=== PATIENT | female | born 1990 | race Hispanic/Latino ===

== ENCOUNTER 2021-01-19 18:04 | Inpatient (IN) | payer SELFPAY ==
[~2021-01-19] VITALS: Ht 149.9 cm; Wt 71.1 kg
[2021-01-19 19:54] VITALS: BP 119/69
[2021-01-19] MEDS ORDERED: ONDANSETRON 4 MG TABLET PO ONE (20:30)
[2021-01-19] MEDS ORDERED: KETOROLAC 60 MG VIAL (30MG/ML) IM ONE (20:30)
[2021-01-19] MEDS ORDERED: DICYCLOMINE HCL 10 MG/ML 2ML AMP IM ONE (20:30)
[2021-01-19 21:23] LABS: APPEARANCE,URINE Clear (CLEAR); BILIRUBIN,URINE Negative (NEGATIVE); COLOR,URINE Yellow (YELLOW); GLUCOSE, URINE (UA) Negative (NEGATIVE); KETONES,URINE Negative (NEGATIVE); LEUKOCYTE ESTERASE ,URINE Negative (NEGATIVE); NITRATE,URINE Negative (NEGATIVE); OCCULT BLOOD,URINE Negative (NEGATIVE); PH,URINE 8.5 (5.0-8.0); PROTEIN,URINE Negative (NEGATIVE); UROBILINOGEN,URINE 0.2 mg/dL (0.2-1.0)
[2021-01-19 21:26] LABS: HCG,QUAL RESULT NEGATIVE (NEGATIVE)
[2021-01-19 22:02] LABS: BASOPHILS % (AUTO) 0.3 % (0.0-5.0); EOSINOPHILS % (AUTO) 0.5 % (0.0-8.0); HEMATOCRIT 39.4 % (36-48); LYMPHOCYTES % (AUTO) 14.1 % (21.0-51.0); MEAN CORPUSCULAR HEMOGLOBIN 27.9 pg (27.0-33.0); MEAN CORPUSCULAR VOLUME 87.4 fL (79-99); MONOCYTES % (AUTO) 4.6 % (3.0-13.0); NEUTROPHILS % (AUTO) 80.2 % (40.0-77.0); PLATELET COUNT (AUTO) 172 K/uL (130-400); RED BLOOD CELL COUNT(AUTO) 4.51 MIL/uL (4.00-5.50); RED CELL DISTRIBUTION WIDTH 12.9 % (11.0-15.5); WHITE BLOOD COUNT (AUTO) 7.6 K/uL (4.8-10.8)
[2021-01-19 22:17] LABS: CREATININE 0.6 mg/dL (0.5-1.5); POTASSIUM 3.9 mmol/L (3.5-5.1)
[2021-01-19 22:27] LABS: BILIRUBIN,TOTAL 0.6 mg/dL (0.2-1.0); TOTAL PROTEIN, SERUM 7.8 g/dL (6.0-8.3)
[2021-01-19 22:46] VITALS: BP 126/79
[2021-01-20 00:37] VITALS: BP 129/85
[2021-01-20] MEDS: SODIUM CHLORIDE 0.9% 1000ML 1,000 ML IV SCH ×4 (00:46→15:35)
[2021-01-20] MEDS ORDERED: ONDANSETRON HCL 4 MG/2 ML VIAL IV PRN (02:15)
[2021-01-20] MEDS ORDERED: ACETAMINOPHEN 325 MG TAB PO PRN ×2 (02:15)
[2021-01-20 03:00] VITALS: BP 111/57
[2021-01-20 05:00] VITALS: BP 106/71
[2021-01-20 08:26] LABS: MEAN CORPUSCULAR HEMOGLOBIN 27.4 pg (27.0-33.0); MEAN CORPUSCULAR HGB CONC 31.9 g/dL (32.0-36.0); MEAN CORPUSCULAR VOLUME 85.9 fL (79-99); RED BLOOD CELL COUNT(AUTO) 4.19 MIL/uL (4.00-5.50); WHITE BLOOD COUNT (AUTO) 3.3 K/uL (4.8-10.8)
[2021-01-20 08:59] LABS: ALBUMIN 3.3 g/dL (3.5-5.0); BILIRUBIN,TOTAL 1.2 mg/dL (0.2-1.0); CREATININE 0.4 mg/dL (0.5-1.5); POTASSIUM 3.9 mmol/L (3.5-5.1); TOTAL PROTEIN, SERUM 6.5 g/dL (6.0-8.3)
[2021-01-20] MEDS ORDERED: ZOSYN 3.375GM+NS 50ML 50 ML IV SCH (09:45)
[2021-01-20] MEDS: FAMOTIDINE/PF 20 MG/2 ML VIAL IV SCH ×2 (09:59→22:10)
[2021-01-20] MEDS: ZOSYN 3.375GM+NS 50ML 50 ML IV SCH ×2 (13:09→22:19)
[2021-01-20 15:03] LABS: AMPHET/METH SCREEN,URINE NEGATIVE (NEGATIVE); BARBITURATE SCREEN, URINE NEGATIVE (NEGATIVE); BENZODIAZEPINES SCREEN,URINE NEGATIVE (NEGATIVE); CANNABINOID SCREEN,URINE NEGATIVE (NEGATIVE); COCAINE SCREEN,URINE NEGATIVE (NEGATIVE); OPIATE SCREEN,URINE NEGATIVE (NEGATIVE); PHENCYCLIDINE SCREEN,URINE NEGATIVE (NEGATIVE)
[2021-01-20 18:02] VITALS: BP 128/84
[2021-01-20 19:52] LABS: ALBUMIN 3.4 g/dL (3.5-5.0); BILIRUBIN,TOTAL 1.1 mg/dL (0.2-1.0); CREATININE 0.6 mg/dL (0.5-1.5); POTASSIUM 3.7 mmol/L (3.5-5.1); TOTAL PROTEIN, SERUM 6.8 g/dL (6.0-8.3)
[2021-01-20 20:00] VITALS: BP 124/74
[2021-01-20 22:00] VITALS: BP 111/69
[2021-01-21] VITALS (8 sets, daily range): BP systolic 104–154; BP diastolic 59–90
[2021-01-21] MEDS: ZOSYN 3.375GM+NS 50ML 50 ML IV SCH (06:37)
[2021-01-21] MEDS: SODIUM CHLORIDE 0.9% 1000ML 1,000 ML IV SCH (06:37)
[2021-01-21 07:00] LABS: BASOPHILS % (AUTO) 0.8 % (0.0-5.0); EOSINOPHILS % (AUTO) 3.9 % (0.0-8.0); HEMATOCRIT 35.5 % (36-48); LYMPHOCYTES % (AUTO) 28.8 % (21.0-51.0); MEAN CORPUSCULAR HEMOGLOBIN 27.4 pg (27.0-33.0); MEAN CORPUSCULAR HGB CONC 31.5 g/dL (32.0-36.0); MEAN CORPUSCULAR VOLUME 86.8 fL (79-99); MONOCYTES % (AUTO) 6.7 % (3.0-13.0); NEUTROPHILS % (AUTO) 59.3 % (40.0-77.0); PLATELET COUNT (AUTO) 139 K/uL (130-400); RED BLOOD CELL COUNT(AUTO) 4.09 MIL/uL (4.00-5.50); WHITE BLOOD COUNT (AUTO) 3.9 K/uL (4.8-10.8)
[2021-01-21 07:04] LABS: INR 1.05 (0.85-1.15); PROTHROMBIN TIME 11.4 SEC (9.6-11.6)
[2021-01-21 07:12] LABS: ALBUMIN 3.1 g/dL (3.5-5.0); BILIRUBIN,TOTAL 0.4 mg/dL (0.2-1.0); CREATININE 0.5 mg/dL (0.5-1.5); POTASSIUM 3.7 mmol/L (3.5-5.1); TOTAL PROTEIN, SERUM 6.2 g/dL (6.0-8.3)
[2021-01-21] MEDS: FAMOTIDINE/PF 20 MG/2 ML VIAL IV SCH ×2 (09:00→21:28)
[2021-01-22] VITALS: BP 145/82
[2021-01-22 04:00] VITALS: BP 104/73
[2021-01-22 07:49] VITALS: BP 109/68
[2021-01-22 07:52] LABS: BASOPHILS % (AUTO) 0.5 % (0.0-5.0); EOSINOPHILS % (AUTO) 2.6 % (0.0-8.0); HEMATOCRIT 37.6 % (36-48); LYMPHOCYTES % (AUTO) 26.5 % (21.0-51.0); MEAN CORPUSCULAR HEMOGLOBIN 27.8 pg (27.0-33.0); MEAN CORPUSCULAR HGB CONC 31.9 g/dL (32.0-36.0); MONOCYTES % (AUTO) 7.4 % (3.0-13.0); NEUTROPHILS % (AUTO) 62.6 % (40.0-77.0); PLATELET COUNT (AUTO) 157 K/uL (130-400); RED BLOOD CELL COUNT(AUTO) 4.32 MIL/uL (4.00-5.50); WHITE BLOOD COUNT (AUTO) 5.7 K/uL (4.8-10.8)
[2021-01-22 08:29] LABS: ALBUMIN 3.6 g/dL (3.5-5.0); BILIRUBIN,TOTAL 0.4 mg/dL (0.2-1.0); CREATININE 0.6 mg/dL (0.5-1.5); POTASSIUM 3.8 mmol/L (3.5-5.1); TOTAL PROTEIN, SERUM 7.1 g/dL (6.0-8.3)
[2021-01-22] MEDS: FAMOTIDINE/PF 20 MG/2 ML VIAL IV SCH (09:52)
[2021-01-22 11:03] VITALS: BP 112/69
== END 2021-01-22 12:00 | disposition home or self-care (01) | DRG 446 ==
LOC: EDH 18:04 → OBSVTOIN 18:05 → EDHIP 18:05 → 3CH 01-21 09:18
PROVIDERS: ADMIT Internal Medicine; ATTEND Internal Medicine
DX: K80.20 Calculus of gallbladder without cholecystitis without obstruction (principal); R74.8 Abnormal levels of other serum enzymes
CPT/HCPCS: 36415; 74181; 76705; 78226; 80053; 80061; 80074; 80305; 81003; 81025; 83690; 85025; 85027; 85610; A9537; G0378; J0500; J1885; J2543; J3490; J7030; Q0162

== ENCOUNTER 2025-08-02 18:37 | Emergency (ER) | payer SELFPAY ==
[~2025-08-02] VITALS: Ht 152.4 cm; Wt 70.3 kg
[2025-08-02 20:00] LABS: IMMATURE GRANULOCYTE ABSOLUTE 0.07 K/uL (0-1); NUCLEATED RED BLOOD CELLS 0.0 % (0.0-0.19); PLATELET COUNT (AUTO) 195 K/uL (130-400); RED BLOOD CELL COUNT(AUTO) 4.62 MIL/uL (4.00-5.50); RED CELL DISTRIBUTION WIDTH 12.8 % (11.0-15.5); WHITE BLOOD COUNT (AUTO) 15.4 K/uL (4.8-10.8)
[2025-08-02 20:10] LABS: CREATININE 0.5 mg/dL (0.5-1.0); GLOMERULAR FILTR. RATE CALC 125.0 mL/min (>90); GLUCOSE,RANDOM 106.0 mg/dL (70-105); SODIUM SERUM 139.0 mmol/L (136-145); UREA NITROGEN, BLOOD 12.0 mg/dL (7-18)
[2025-08-02 20:14] LABS: ASPARTATE AMINOTRANSFERASE 19.0 U/L (10-37); TOTAL PROTEIN, SERUM 7.5 g/dL (6.0-8.3)
--- NOTE | 2025-08-02 22:43 | HMCIMG ---
EXAMINATION: ULTRASOUND OF THE ABDOMEN (LIMITED) WITH COLOR DOPPLER. CLINICAL HISTORY: To rule out acute cholecystitis. COMPARISON: None. TECHNIQUE: Real-time grayscale ultrasound images of the abdomen. In addition, color Doppler is medically necessary to perform in order to evaluate vascularity and blood flow. FINDINGS: Liver: Normal in caliber, the right hepatic lobe measures 12.8 cm in the craniocaudal dimension. There is normal echogenicity of the hepatic parenchyma. There is no focal hepatic abnormality or intrahepatic biliary ductal dilatation. There is normal spectral Doppler of the main portal vein. Gallbladder: Within normal limits with normal wall thickness (0.2 cm). No hyperemia or pericholecystic free fluid. There a calculus that measures 2.1 cm. There is sludge. Common bile duct is normal in caliber, measuring 0.37 cm. Pancreas: Obscured by overlying bowel gas. The right kidney is normal in caliber, the right kidney measures 8.8 x 4.4 x 4.2 cm in its craniocaudal, AP, and transverse dimensions respectively. There is normal renal cortical thickness, and cortical echogenicity. There is no renal calculus or hydronephrosis. IMPRESSION: Cholelithiasis. No cholecystitis. /[place]
[2025-08-02] MEDS ORDERED: FAMO-136 PO (22:56)
[2025-08-02] MEDS ORDERED: KETO10TA2 PO (22:56)
[2025-08-02] MEDS ORDERED: ONDA-243 PO (22:56)
--- NOTE | 2025-08-02 23:00 | ERN ---
General Chief Complaint: Abdominal Pain Stated Complaint: ABDOMINAL PAIN Time Seen by MD: 18:40 Time Seen by Midlevel: 18:40 Source: patient History of Present Illness Initial Comments The patient is a 35-year-old female with a past medical history of gallstones presenting to the emergency department for evaluation of right upper quadrant abdominal pain. The pain started at noon today. No other symptoms reported at this time Allergies: Coded Allergies: No Known Drug Allergies (Unverified Allergy, Unknown, 01/19/21) Home Meds Active Scripts Famotidine (Pepcid) 20 Mg Tablet, 1 TAB PO BID for 10 Days, #20 TAB 0 Refills Prov:EDGAR JOE [facility] 08/02/25 Ketorolac Tromethamine (Ketorolac Tromethamine) 10 Mg Tablet, 1 TAB PO TID for pain for 5 Days, #15 TAB 0 Refills Prov:EDGAR JOE [facility] 08/02/25 Ondansetron (Ondansetron Odt) 4 Mg Tab.rapdis, 4 MG PO BID for 7 Days, #14 TAB Prov:EDGAR JOE [facility] 08/02/25 Past Medical History Past Medical History: Gallstones Past Surgical History: None Female( History) LMP: Jul 20, 2025 : 2 Para: 2 ROS Dictation CONSTITUTIONAL: Negative except for HPI HEAD/FACE: Negative except for HPI EENT: Negative except for HPI RESPIRATORY: Negative except for HPI GASTROINTESTINAL/ABDOMINAL: Negative except for HPI GENITOURINARY: Negative except for HPI MUSCULOSKELETAL: Negative except for HPI INTEGUMENTARY: Negative except for HPI NEUROLOGICAL/PSYCH: Negative except for HPI HEMATOLOGIC/LYMPHATIC: Negative except for HPI All Systems Negative, Except as noted above. 13 point review of systems assessed and all negative except for above. Physical Exam Physical Exam Dictation Vital Signs reviewed General Appearance: Alert, oriented x 3, no acute distress, well developed, nourished. Head and Face: non-traumatic. Eyes: PERRL, pink conjunctivas, eyelid no trauma, anterior chamber with arcus senilis. Ears: Pinnas intact and no signs of trauma or erythema ear canals clear and no discharge TM no erythema Nose: No discharge, no bleeding. Oropharynx: Mouth normal, tongue pink, pharynx clear,no erythema, tonsils no exudates, no abscesses noted, mucous membrane moist Neck: Supple, non-tender, no thyromegaly, no masses, no JVD, no bruits Breast:Deferred Chest:No tenderness, no crepitus, no paradoxical movement, no retractions Lungs:Clear, well-ventilated, symmetric, no rales, no wheezing, no rhonchi, no stridor, good breath sounds bilaterally Heart: Regular rate, regular rhythm, no murmur, no gallops Vascular: no peripheral edema, Abdomen: Soft, positive bowel sounds, nondistended, no guarding, Right upper quadrant abdominal tenderness, no rebound, no masses no hepatomegaly, no splenomegaly, no Rodriguez's sign, no hernias. Rectal: Deferred Genital: Deferred Neurological: Normal speech, motor function intact, sensory function intact Musculoskeletal: Neck nontender, full range of motion, back nontender, full range of motion, Extremities: nontender, full range of motion Skin: Color pink, dry, no turgor, no rash, no lacerations, no abrasions, no contusions. Lymphatic: Deferred Results Laboratory and Microbiology Lab and Micro Result Laboratory Tests Test 08/02/25 19:53 White Blood Count 15.4 K/uL (4.8-10.8) H Red Blood Count 4.62 MIL/uL (4.00-5.50) Hemoglobin 13.3 g/dL (12.0-16.0) Hematocrit 40.3 % (36-48) Mean Corpuscular Volume 87.2 fL (79-99) Mean Corpuscular Hemoglobin 28.8 pg (27.0-33.0) Mean Corpuscular Hemoglobin Concent 33.0 g/dL (32.0-36.0) Red Cell Distribution Width 12.8 % (11.0-15.5) Platelet Count 195 K/uL (130-400) Mean Platelet Volume 12.7 fL (7.5-10.5) H Immature Granulocyte % (Auto) 0.5 % (0-1) Neutrophils (%) (Auto) 91.8 % (40.0-77.0) H Lymphocytes (%) (Auto) 5.0 % (21.0-51.0) L Monocytes (%) (Auto) 2.5 % (3.0-13.0) L Eosinophils (%) (Auto) 0.1 % (0.0-8.0) Basophils (%) (Auto) 0.1 % (0.0-5.0) Neutrophils # (Auto) 14.2 K/uL (1.8-7.7) H Lymphocytes # (Auto) 0.8 K/uL (1.0-4.8) L Monocytes # (Auto) 0.4 K/uL (0.1-1.0) Eosinophils # (Auto) 0.01 K/uL (0.00-0.70) Basophils # (Auto) 0.02 K/uL (0.00-0.20) Absolute Immature Granulocyte (auto 0.07 K/uL (0-1) Nucleated Red Blood Cells 0.0 % (0.0-0.19) White Cell Morphology Comment See comments Sodium Level 139 mmol/L (136-145) Potassium Level 3.5 mmol/L (3.5-5.1) Chloride Level 102 mmol/L (101-111) Carbon Dioxide Level 27 mmol/L (21-32) Blood Urea Nitrogen 12 mg/dL (7-18) Creatinine 0.5 mg/dL (0.5-1.0) Glomerular Filtration Rate Calc 125 mL/min (>90) Random Glucose 106 mg/dL (70-105) H Total Calcium 8.9 mg/dL (8.5-10.1) Total Bilirubin 0.3 mg/dL (0.2-1.0) Aspartate Amino Transf (AST/SGOT) 19 U/L (10-37) Alanine Aminotransferase (ALT/SGPT) 24 U/L (12-78) Alkaline Phosphatase 66 U/L (50-136) Total Protein 7.5 g/dL (6.0-8.3) Albumin 4.1 g/dL (3.5-5.0) Lipase 17 U/L (16-77) Serum Test, Qualitative NEGATIVE (NEGATIVE) Labs Reviewed?: Yes MDM MDM: Differential diagnosis: Cholelithiasis, acute cholecystitis, biliary colic There are no social concerns with this patient. Prescription drug management Prescriptions will include: Zofran, Pepcid, Toradol Medical management and examination interpretation discussions were had by me with other qualified healthcare professionals as indicated for the patient's care. ED Course Orders Procedure Category Date Status Time Cbc With Differential LAB 08/02/25 Complete 18:46 Comprehensive LAB 12/16/25 Complete Metabolic Panel 18:46 Lipase LAB 08/02/25 Complete 18:46 Urinalysis Profile LAB 08/02/25 Logged 18:46 Testing, LAB 08/02/25 Complete Serum Hcg 18:46 Ketorolac PHA 08/02/25 Complete Tromethamine 15mg/Ml 20:30 Ondansetron 4mg Inj PHA 08/02/25 Complete (Zofran 4mg Inj) 20:30 Us Abdominal Ruq\Ltd US 08/02/25 Resulted 20:20 Current Medications Medications (Trade) Dose Ordered Sig/Geo Route PRN Reason Start Time Stop Time Status Last Admin Dose Admin Ketorolac Tromethamine (toRADol) 15 mg ONCE ONCE IV 08/02/25 20:30 08/02/25 20:31 DC 08/02/25 20:19 Ondansetron HCl (zoFRAN 4MG INJ) 4 mg ONCE ONCE IVP 08/02/25 20:30 08/02/25 20:31 DC 08/02/25 20:19 Vital Signs Date Time Temp Pulse Resp B/P (MAP) Pulse Ox O2 Delivery O2 Flow Rate FiO2 08/02/25 21:13 99.0 64 16 113/69 98 Room Air* 0 21 08/02/25 18:39 98.8 71 20 143/96 99 Room Air [place] [id number] [address] IMAGING REPORT Signed PATIENT: CLAUDINE MARKS MR#: [id number] : 1990 SEX: F AGE: 35 LOCATION: [facility] ORDER 20 STATUS: REG ER REPORT#: [id number] SERVICE 19 REASON: r/o acute cholecystitis ORDERING PHYSICIAN: EDGAR JOE PAC PROCEDURE: ABDRUQLTD - US ABDOMINAL RUQ\LTD EXAMINATION: ULTRASOUND OF THE ABDOMEN (LIMITED) WITH COLOR DOPPLER. CLINICAL HISTORY: To rule out acute cholecystitis. COMPARISON: None. TECHNIQUE: Real-time grayscale ultrasound images of the abdomen. In addition, color Doppler is medically necessary to perform in order to evaluate vascularity and blood flow. FINDINGS: Liver: Normal in caliber, the right hepatic lobe measures 12.8 cm in the craniocaudal dimension. There is normal echogenicity of the hepatic parenchyma. There is no focal hepatic abnormality or intrahepatic biliary ductal dilatation. There is normal spectral Doppler of the main portal vein. Gallbladder: Within normal limits with normal wall thickness (0.2 cm). No hyperemia or pericholecystic free fluid. There a calculus that measures 2.1 cm. There is sludge. Common bile duct is normal in caliber, measuring 0.37 cm. Pancreas: Obscured by overlying bowel gas. The right kidney is normal in caliber, the right kidney measures 8.8 x 4.4 x 4.2 cm in its craniocaudal, AP, and transverse dimensions respectively. There is normal renal cortical thickness, and cortical echogenicity. There is no renal calculus or hydronephrosis. IMPRESSION: Cholelithiasis. No cholecystitis. /[place] DICTATED BY: JUSTIN EATON MD DATE: 08/02/252150 ELECTRONICALLY SIGNED BY: JUSTIN EATON MD DATE: 08/02/252150 DX & DISP Disposition: Discharge Departure Impression: Primary Impression: Cholelithiasis Condition: Stable Scripts Famotidine (Pepcid) 20 Mg Tablet 1 TAB PO BID for 10 Days, #20 TAB 0 Refills Prov: EDGAR JOE [facility] 08/02/25 Ketorolac Tromethamine (Ketorolac Tromethamine) 10 Mg Tablet 1 TAB PO TID for pain for 5 Days, #15 TAB 0 Refills Prov: EDGAR JOE 08/02/25 Ondansetron (Ondansetron Odt) 4 Mg Tab.rapdis 4 MG PO BID for 7 Days, #14 TAB Prov: EDGAR JOE [facility] 08/02/25 Additional Instructions: Based on your ultrasound today you have gallstones, which are solid deposits in the gallbladder. These can cause abdominal pain, especially after eating fatty or greasy foods. Your blood work today is stable, and there are no signs of blockage at this time. Pain may come and go, and often in the right upper abdomen or upper middle abdomen. You may take Tylenol and ketorolac for pain. I have also given you a prescription for nausea medication. You will need to follow up with your primary care doctor within 1-2 weeks. You will need a referral to General surgery to discuss possible gallbladder removal if symptoms continue or worsen. Referrals: SELF,REFERRAL (PCP) JACOBY OLEA MD Time of Disposition: 22:54 I have reviewed the case, and I agree with, Diagnosis and Plan I performed the substantive portion of the visit. I have reviewed and personally made and approve the management plan that is documented in the note by myself or the JACKELIN. I acknowledge for responsibility for the patient's management plan. EDGAR JOE PAC Aug 02, 2025 23:00
[2025-08-02 23:13] VITALS: BP 116/68; PULSE 68; RESP 16; TEMP 99; O2SAT 98
== END 2025-08-02 23:15 | disposition home or self-care (01) ==
LOC: EDH 18:37
DX: K80.20 Calculus of gallbladder without cholecystitis without obstruction (principal); Z79.899 Other long term (current) drug therapy
CPT/HCPCS: 99285; 96374; 76705; 96375; 80053; 84703; 83690; 85025; 36415; J1885; J2405